=== PATIENT | female | born 2000 | race Hispanic/Latino ===

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

== ENCOUNTER 2024-08-16 17:00 | Outpatient (RCR) | payer BC ==
[~2024-08-16 17:00] MED LIST changes: -BUPIVACAINE 0.25% 30ML SDV ONE; -CEFAZOLIN SOD 1 GM VIAL ONE; -DEXAMETHASONE SOD PHOS INJ 4 MG/ML VIAL ONE; -FENTANYL CITRATE/PF 100MCG/2 ML INJ ONE; -GLYCOPYRROLATE INJ 0.2 MG/ML VIAL ONE; -HYDROCODONE/APAP 7.5MG-325MG 1 EA TAB ONE; -KETOROLAC TROMETHAMINE 30 MG/ML VIAL ONE; -LIDOCAINE HCL 2% LOCAL INJ 5 ML SDV VIAL INJ ONE; -MIDAZOLAM HCL 2 MG/2 ML VIAL ONE; -NEOSTIGMINE 1 MG/ML 10ML VIAL ONE; -ONDANSETRON HCL INJ 2MG/ML 2ML 2 MG/ML VIAL ONE; -PHENYLEPHRINE HCL 1% 10 MG/ML VIAL ONE; -PROPOFOL IV EMULSION 10 MG/ML 20 ML VIAL ONE; -ROCURONIUM BROMIDE 10 MG/ML 5ML VIAL IV ONE; -SEVOFLURANE INHAL SOLN 250 ML PEN BTL ONE
== END 2024-08-18 ==
LOC: PT 17:00
PROVIDERS: ATTEND Otolaryngology
DX: H81.90 Unspecified disorder of vestibular function, unspecified ear (principal)

== ENCOUNTER 2024-08-30 17:08 | Outpatient (RCR) | payer BC | END 2024-09-15 | LOC: PT 17:08 | PROVIDERS: ATTEND Otolaryngology | DX: H81.90 Unspecified disorder of vestibular function, unspecified ear (principal) ==

== ENCOUNTER 2024-09-19 19:10 | Emergency (ER) | payer BC ==
[~2024-09-19] VITALS: Ht 170.2 cm; Wt 117.9 kg
[2024-09-19 20:22] VITALS: RESP 16; TEMP 98.3
[2024-09-19] MEDS: ACETAMINOPHEN 325 MG TAB PO ONE (21:12)
[2024-09-19] MEDS ORDERED: NAPROSYN500 MG PO (23:13)
[2024-09-19] MEDS ORDERED: CYCLOBENZAPRINE5 MG PO (23:13)
[2024-09-19] MEDS: ORPHENADRINE CITRATE 30 MG/ML VIAL IM ONE (23:20)
[2024-09-19] MEDS: KETOROLAC TROMETHAMINE 60 MG/2 ML VIAL IM ONE (23:21)
[2024-09-19 23:50] VITALS: PULSE 64
[2024-09-20 00:02] VITALS: BP 127/74; O2SAT 100
== END 2024-09-19 23:59 | disposition home or self-care (01) ==
LOC: ER 23:04
DX: S16.1XXA Strain of muscle, fascia and tendon at neck level, initial encounter (principal); R51.9 Headache, unspecified; V43.52XA Car driver injured in collision with other type car in traffic accident, initial encounter; Y92.488 Other paved roadways as the place of occurrence of the external cause; G47.00 Insomnia, unspecified
CPT/HCPCS: 70450; 72125; 99283; J1885; J2360

== ENCOUNTER → 2024-11-15 | Outpatient (RCR) | payer BC ==
[~2024-11-15] MED LIST changes: +CYCLOBENZAPRINE5 MG PO; +NAPROSYN500 MG PO
== END ==
LOC: PT 10-18 16:10
PROVIDERS: ATTEND Nurse Practitioner Family
DX: M50.30 Other cervical disc degeneration, unspecified cervical region (principal); M62.81 Muscle weakness (generalized)